=== PATIENT | female | born 1965 | race Caucasian/White ===

== ENCOUNTER 2020-07-03 16:39 | Emergency (ER) | payer OTHER ==
[~2020-07-03] VITALS: Ht 177.8 cm; Wt 68.0 kg
[2020-07-03] MEDS ORDERED: TETANUS-DIPTH-ACEL PERTUSSIS 0.5ML SYR Tdap IM ONE (17:00)
[2020-07-03 17:42] LABS: Basophils # (auto) 0.1 10 ^3/uL (0-0.2); Eosinophils # (auto) 0 10 ^3/uL (0-0.8); Hemoglobin 12.7 g/dL (12.2-16.2); Monocytes # (auto) 0.7 10 ^3/uL (0-1.3); Neutrophils # (auto) 3.8 10 ^3/uL (1.6-8.6); Nucleated Red Blood Cells % 0.2 %; Red Cell Distribution Width 14.1 % (11.8-14.3)
[2020-07-03 17:43] LABS: Basophils % (auto) 1.4 % (0.0-2.0); Eosinophils % (auto) 0.3 % (0.0-7.0); Hematocrit 35.6 % (36.0-46.0); Lymphocytes # (auto) 1.5 10 ^3/uL (0.4-5.4); Lymphocytes % (auto) 24.3 % (10.0-50.0); Mean Corpuscular Hemoglobin 39.3 pg (28.0-32.0); Mean Corpuscular Hgb Conc. 35.7 g/dL (32.0-36.0); Mean Corpuscular Volume 110.2 fL (80.0-100.0); Monocytes % (auto) 10.9 % (0.0-12.0); Neutrophils % (auto) 63.1 % (37.0-80.0); Platelet Count (auto) 117 10^3/uL (140-450); Red Blood Cells 3.24 10^6/uL (4.0-5.20)
[2020-07-03 18:02] LABS: Albumin 3.7 g/dL (3.4-5.0); Anion Gap 18 (5-15); Blood Urea Nitrogen 8 mg/dL (7-18); Calcium 8.1 mg/dL (8.5-10.1); Carbon Dioxide 18 mmol/L (21-32); Chloride 103 mmol/L (98-107); Glucose 115 mg/dL (74-106); Magnesium 1.6 mg/dL (1.6-2.6); Potassium 3.8 mmol/L (3.5-5.1); Sodium 139 mmol/L (136-145)
[2020-07-03 18:12] LABS: Alanine Aminotransferase 102 U/L (13-56); Alkaline Phosphatase 96 U/L (45-117); Aspartate Aminotransferase 287 U/L (15-37); BUN/Creatinine Ratio 15.4; Bilirubin, Total 1.3 mg/dL (0.2-1.0); GFR African American 157 mL/min; GFR Non-African American 130 mL/min; Total Protein 7.4 g/dL (6.4-8.2)
[2020-07-03] MEDS ORDERED: THIAMINE INJ 100 MG in SODIUM CHLORIDE 0.9% 1,000 ML IV ONE (18:45)
[2020-07-03] MEDS ORDERED: SODIUM CHLORIDE 0.9% 1,000 ML IV ONE (18:45)
[2020-07-03 18:55] LABS: INR 1.09 (0.9-1.15); Partial Thromboplastin Time 23.1 sec (23.0-31.2)
[2020-07-03 19:17] VITALS: BP 113/82
== END 2020-07-03 20:41 | disposition home or self-care (01) ==
LOC: ER 16:39 → EDBD 16:39 → ER 20:41
DX: S80.811A Abrasion, right lower leg, initial encounter (principal); F10.920 Alcohol use, unspecified with intoxication, uncomplicated; X58.XXXA Exposure to other specified factors, initial encounter; Y93.89 Activity, other specified; Y92.89 Other specified places as the place of occurrence of the external cause; Y99.8 Other external cause status
CPT/HCPCS: 36415; 70450; 71250; 72125; 73562; 73610; 80053; 80320; 83735; 83880; 84443; 84484; 85025; 85379; 85610; 85730; 90471; 90715; 93005; 99285; J3411; J7030